=== PATIENT | male | born 1945 | race Caucasian/White ===

== ENCOUNTER 2018-06-11 18:22 | Inpatient (IN) | payer OTHER ==
[~2018-06-11] VITALS: Ht 180.3 cm; Wt 103.0 kg
--- NOTE | ~2018-06-11 | EEG ---
[address] [address] EEG STUDY REPORT Name: PATRICK VIZCAINO Room: [address] IN M.R.#: [id number] Admission: 06/11/18 Attend Phys: Michele Gore Discharge: Date of : 49 Report #: [id number] THIS REPORT FOR: //name// CC: Jasmine Henderson DATE OF SERVICE: 06/13/2018 This patient had an episode of syncope. EEG was done by placing the electrode by standard 10-20 system of electrode placement. Both referential and sequential montages were used for recording. Background activity in this patient's EEG is about 11 Hz and 30 microvolt. The patient became drowsy that is associated with bilateral slowing and vertex sharp waves. Photic stimulation was unremarkable. Throughout the record, no active epileptiform activity was noticed. IMPRESSION: This patient's EEG is within normal limit. Thank you very much for this referral. By: [id number] [id number] Jarrell MD /lexie
--- NOTE | ~2018-06-11 | CON ---
[address] [address] CONSULTATION Name: PATRICK VIZCAINO Room: [address] IN M.R.#: [id number] Admission: 06/11/18 Attend Phys: Michele Gore Discharge: Date of : 49 Report #: [id number] THIS REPORT FOR: //name// CC: Jasmine Henderson DATE OF SERVICE: 06/13/2018 HISTORY OF PRESENT ILLNESS: This is a 73-year-old male patient who was evaluated by me for an episode of syncope. The patient gives a history that he tried to stand up, but then he had a distinct finding of right side becoming spastic. He was conscious during that episode. It was found that he was hypotensive during that episode. There is no well-defined postictal period. REVIEW OF SYSTEMS: He indicates that he also had other episode where he become spastic on one side or other side. History is complicated because he does have a history of anxiety. He had a severe depression somewhere in 1990s, but anxiety has been pretty persistent throughout his life. Cardiology note was seen and looks like they are readjusting his medications because of his hypertension. They have also done the workup and some of the workup will be done as an outpatient. Review of systems is positive for prostate problem. He has a ganglion removal. He has depression and anxiety. He does have a history of hypertension, but looks like he has a history of hypotension now. Fourteen-point review of system was carried out and it was noncontributory except as described above. PAST MEDICAL HISTORY: Positive for similar episode where he does become somewhat spastic. FAMILY HISTORY: Negative for any early age stroke. SOCIAL HISTORY: He does not drink alcohol on a regular basis and does not use any street drugs. PHYSICAL EXAMINATION: Indicates he is alert. He is responsive. He can follow simple commands. His speech, concentration, fund of knowledge and memory is at his baseline. Cranial nerve examination 2-12 looks unremarkable. Strength, sensation, reflexes and tones are symmetrical. There is no cerebellar sign. I could not look at the fundus. He is reasonably well-developed individual who does not have any dysmorphic features of eyes, ears and face. His vision and hearing looks adequate. He has no thyroid mass. There is no carotid bruit. Cardiac examinations appear noncontributory. No respiratory difficulty or rhonchi. Blood pressure is 123/70, respiration 17, pulse is 78, temperature is 97.4. LABORATORY DATA: Indicate normal white count. Sodium is normal[place] [address] CONSULTATION Name: PATRICK VIZCAINO Room: [address] IN [facility]#: [id number] Admission: 06/11/18 Attend Phys: Michele Gore Discharge: Date of : 49 Report #: [id number] carotid Doppler and CT and that does not show any finding, which can explain the patient's symptoms. It does show some atrophy. IMPRESSION: This patient's symptoms were most likely secondary to hypoperfusion of the brain secondary to hypotension. He has a distinct focality to the symptoms, which is somewhat concerning. Because of that, a baseline stenosis on the left side, which was compensated in the baseline, but became decompensated with hypertension need to be excluded. So, I recommended the workup to further exclude that. RECOMMENDATIONS: 1. We will do the MRI of the brain. I discussed the procedure with him. I discussed the option of doing with contrast or doing without contrast. He wants to do it with and without contrast and he understands the potential complication of contrast. 2. We will do an EEG. 3. We will do an MRA. His BUN and creatinine is normal. So, the chances of any contrast reaction is low, but some contrast reaction including irreversible dermatological affect is always possible. I have discussed all of it with the patient and I will also talk to his daughter who is a nurse after the above workup is available. Thank you very much for this referral and if you have any question, please feel free to contact me. By: [id number] [id number] Jarrell MD /lexie
[~2018-06-11 18:22] MED LIST: ALLEGRA ALLERG180 MG PO; ASPIRIN81 M2 PO; CALCIUM 600 +1 EAC1 PO; CENTRUM SILVER1 EAC4 PO; CLONAZEPAM 0.50.5 M1 PO; DIOVAN 80 MG TA80 M1 PO; FISH OIL 1,0001 EAC8 PO; METOPROLOL SUCC25 M1 PO; MIRAPEX1 MG PO; MOBIC15 MG PO; NEXIUM 40 MG CA40 M1 PO; NIASPAN 500 MG500 M1 PO; PRAVASTATIN SOD40 MG PO; SERTRALINE HCL50 MG PO; SPIRONOLACTONE25 M1 PO; VESICARE 5 MG TA5 M1 PO; VITAMIN D-32000 UNIT PO
[2018-06-11] MEDS ORDERED: ACCUNEB SO1.25 MG/1 INH (18:41)
[2018-06-11] MEDS ORDERED: NORVASC5 M1 PO (18:42)
[2018-06-11] MEDS ORDERED: PULMICORT0.5 MG/22 INH (18:43)
[2018-06-11] MEDS ORDERED: LIPITOR 20 MG T20 M1 PO (18:43)
[2018-06-11] MEDS ORDERED: ELIDEL CREAM 1%30 G1 TOP (18:45)
[2018-06-11] MEDS ORDERED: COREG25 MG PO (18:45)
[2018-06-11] MEDS ORDERED: TRAMADOL 50 MG50 MG PO (18:46)
[2018-06-11] MEDS ORDERED: LEXAPRO20 MG PO (18:46)
[2018-06-11] MEDS ORDERED: COQ-10100 MG PO (18:47)
[2018-06-11] MEDS ORDERED: VITAMINC500 PO (18:47)
[2018-06-11] MEDS ORDERED: PHOSPHATIDYLSERI1 GM PO (18:48)
[2018-06-11 18:55] LABS: ABSOLUTE BASOPHILS 0.1 thou/uL (0.0-0.2); ABSOLUTE EOSINOPHILS 0.1 thou/uL (0.0-0.7); ABSOLUTE LYMPHOCYTES 1.5 thou/uL (0.8-5.3); ABSOLUTE MONOCYTES 0.7 thou/uL (0.0-1.2); ABSOLUTE NEUTROPHILS 5.5 thou/uL (1.6-8.1); BASOPHILS 0.7 %; EOSINOPHILS 1.7 %; HEMATOCRIT 36.3 % (42.0-52.0); HEMOGLOBIN 12.2 gm/dL (14.0-18.0); LYMPHOCYTES 18.7 %; MCH 30.7 pg (26.0-34.0); MCHC 33.5 g/dL (28.0-37.0); MCV 91.7 fL (80.0-100.0); MONOCYTES 8.4 %; MPV 10.2 fl. (7.2-11.1); NUCLEATED RBCS 0 /100WBC; PLATELET COUNT* 216 thou/uL (150-400); POLYS 70.5 %; RBC 3.96 mil/uL (4.50-6.00); RDW-CV 14.2 % (10.5-14.5); WBC 7.8 thou/uL (4.0-11.0)
[2018-06-11 19:02] LABS: ANION GAP 8 mmol/L (7-16); BUN 32 mg/dL (7-18); CALCIUM 8.8 mg/dL (8.5-10.1); CHLORIDE 102 mmol/L (98-107); CO2 28 mmol/L (21-32); CREATININE 1.4 mg/dL (0.6-1.3); GLUCOSE 126 mg/dL (70-99); POTASSIUM 4.2 mmol/L (3.5-5.1); SODIUM 138 mmol/L (136-145)
[2018-06-11 19:13] LABS: ALBUMIN 3.3 g/dL (3.4-5.0); ALKALINE PHOSPHATASE 63 U/L (46-116); NT-PRO BRAIN NAT PEPTIDE 55 pg/mL (<300); SGOT 18 U/L (15-37); SGPT 18 U/L (30-65); TOTAL BILIRUBIN 0.4 mg/dL (<0.1-1.0); TOTAL PROTEIN 6.7 g/dL (6.4-8.2); TROPONIN-I LEVEL <0.06 ng/mL (<0.06)
[2018-06-11 19:47] LABS: URINE BILIRUBIN NEGATIVE (Negative); URINE BLOOD NEGATIVE (Negative); URINE CLARITY CLEAR; URINE COLOR YELLOW; URINE GLUCOSE-RANDOM NEGATIVE (Negative); URINE KETONES NEGATIVE (Negative); URINE LEUKOCYTES-REFLEX NEGATIVE (Negative); URINE NITRITE-REFLEX NEGATIVE (Negative); URINE PROTEIN NEGATIVE (Negative); URINE UROBILINOGEN 0.2 E.U./dl (0.2-1.0)
[2018-06-11 21:45] VITALS: BP 129/65
[2018-06-11 22:00] VITALS: BP 131/55
--- NOTE | 2018-06-11 23:02 | NUR ---
PT ADMITTED TO ROOM 208 AT 2200 FOR NEAR SYNCOPAL EPISODE AT HOME. PT AMBULATE FROM [facility] IN [place] TO BED WITH STANDBY ASSISTANCE. PT DENIES LIGHT HEADEDNESS OR VERTIGO. PT'S BLOOD PRESSURE AND HEART RATE WITHIN NORMAL LIMITS UPON ARRIVAL. MONITOR SHOWS SINUS RHYTHYM. CALL LIGHT IN REACH, PT DEMONSTRATES PROPER USE. FALL PRECAUTIONS IN PLCE, BED ALARM ON.
[2018-06-12] VITALS (8 sets, daily range): BP systolic 102–122; BP diastolic 48–64
[2018-06-12 05:28] LABS: ANION GAP 10 mmol/L (7-16); BUN 28 mg/dL (7-18); CALCIUM 8.9 mg/dL (8.5-10.1); CHLORIDE 105 mmol/L (98-107); CO2 25 mmol/L (21-32); CREATININE 1.2 mg/dL (0.6-1.3); GLUCOSE 91 mg/dL (70-99); MAGNESIUM 1.8 mg/dL (1.8-2.4); POTASSIUM 4.1 mmol/L (3.5-5.1); SODIUM 140 mmol/L (136-145); TROPONIN-I LEVEL <0.06 ng/mL (<0.06)
--- NOTE | 2018-06-12 05:54 | NUR ---
BLOOD PRESSURE WITHIN NORMAL LIMITS SINCE ADMISSION. MONITOR SHOWS BIJEMINY FOR LONG PERIODS OF TIME. NO VERTIGO OR LIGHTHEADEDNESS DURING NIGHT. PT UP WITH STANBY ASSIST, NO SYNCOPE. WILL CONTINUE TO MONITOR .
--- NOTE | 2018-06-12 09:00 | NUR ---
REC'D REPORT FROM NOC RN, ASSUMED CARE OF PT APPROX 0730. A&O x4, FORGETFUL, BUT ABLE TO COMMUNICATE NEEDS TO STAFF. BRUSHER OPERATOR IN PLACE, MARY. O2 SATS 94% 2L/MIN NC. ASSESSMENT COMPLETE. CALL LIGHT WITHIN REACH. HOURLY ROUNDING TO ASSESS FOR PT NEEDS.
[2018-06-12 10:36] LABS: CHOLESTEROL 127 mg/dL (<200); HDL CHOLESTEROL 25 mg/dL (>40); LDL CHOLESTEROL 67 mg/dL (<100); SERUM ASSESSMENT Clear; TC:HDL 5.1 Ratio (Not establshd); TRIGLYCERIDE 175 mg/dL (<150); VLDL 35 mg/dL (<40)
--- NOTE | 2018-06-12 11:00 | NUR ---
PT'S DTR, ALLEN, TO ROOM VISITING PT. DTR REVIEWED EPISODE THAT HAPPENED AT HER HOME PRIOR TO PT BEING TRANSPORTED TO HOSPITAL. ALLEN STATES "DAD DIDN'T LOSE CONSCIOUSNESS. HIS RIGHT ARM AND LEG BECAME STIFF. HE GRUNTED HE SPOKE MY NAME." REVIEWED PLAN FOR PT WITH DTR ALLEN WHO VOICED UNDERSTANDING.
--- NOTE | 2018-06-12 11:10 | EKG ---
[place] [address] ELECTROCARDIOGRAM REPORT Name: PATRICK VIZCAINO Room: [address] ADM IN M.R.#: [id number] Admission: 06/11/18 Attend Phys: Michele Gore Discharge: Date of : 49 Report #: [id number] THIS REPORT FOR: //name// [facility] ED Test Date: 2018-06-11 Test Time: 18:28:17 Pat Name: PATRICK VIZCAINO Department: Room: [facility] Gender: Foot Piece Assembler: Jonathon MARK : 1945 Requested By: Mirella Barragan Order Number: [id number] MD: Matthew Vizcarra Measurements Intervals [place] Rate: 56 P: 40 CT: 328 QRS: 18 QRSD: 96 T: 68 QT: 406 QTc: 392 Interpretive Statements Sinus rhythm Ventricular trigeminy Prolonged CT interval Abnormal R-wave progression, early transition Compared to ECG 11/28/2012 09:01:00 Ventricular premature complex(es) now present Electronically Signed On 06-12-2018 11:09:46 PUBLIC HEALTH ANALYST by Matthew Vizcarra [email or web address] <ELECTRONICALLY SIGNED> By: Matthew Vizcarra MD, FAC 06/12/18 1109 [id number] 27 Matthew Vizcarra MD, FAC /EPI
--- NOTE | 2018-06-12 11:10 | EKG ---
[place] [address] ELECTROCARDIOGRAM REPORT Name: PATRICK VIZCAINO Room: [address] ADM IN M.R.#: [id number] Admission: 06/11/18 Attend Phys: Michele Gore Discharge: Date of : 49 Report #: [id number] THIS REPORT FOR: //name// [facility] ED Test Date: 2018-06-11 Test Time: 19:45:50 Pat Name: PATRICK VIZCAINO Department: Room: [facility] Gender: M Phone Screener: Bladimir CARIAS : 1945 Requested By: Tristin Medina Order Number: [id number] MD: Matthew Vizcarra Measurements Intervals [place] Rate: 70 P: 45 [place]: 331 QRS: 15 QRSD: 100 T: 62 QT: 406 QTc: 439 Interpretive Statements Sinus rhythm Ventricular trigeminy Prolonged [place] interval Low voltage, precordial leads Compared to ECG 11/28/2012 09:01:00 Ventricular premature complex(es) now present Low QRS voltage now present Electronically Signed On 06-12-2018 11:10:05 IRRIGATION TEACHER by Matthew Vizcarra [email or web address] <ELECTRONICALLY SIGNED> By: Matthew Vizcarra MD, FACC 06/12/18 1110 44 44 Matthew Vizcarra MD, FACC /EPI
--- NOTE | 2018-06-12 11:12 | EKG ---
[place] [address] ELECTROCARDIOGRAM REPORT Name: CARRILLOPATRICK Room: [address] ADM IN M.R.#: [id number] Admission: 06/11/18 Attend Phys: Michele Gore Discharge: Date of : 49 Report #: [id number] THIS REPORT FOR: //name// [facility] Test Date: 2018-06-12 Test Time: 08:09:24 Pat Name: PATRICK VIZCAINO Department: Room: [address] Gender: M Straight Edger: : 1945 Requested By: Jack Henderson Order Number: [id number] Reading MD: Matthew Vizcarra Measurements Intervals [place] Rate: 81 P: 68 CT: 313 QRS: 18 QRSD: 99 T: 56 QT: 375 QTc: 436 Interpretive Statements Sinus rhythm Ventricular bigeminy Prolonged CT interval Compared to ECG 11/28/2012 09:01:00 Ventricular premature complex(es) now present Electronically Signed On 06-12-2018 11:11:52 PAINT GRINDER by Matthew Vizcarra [email or web address] <ELECTRONICALLY SIGNED> By: Matthew Vizcarra MD, FACC 06/12/18 1111 [id number] Matthew Vizcarra MD, [facility] /EPI
--- NOTE | 2018-06-12 15:36 | NUR ---
Pt having a u/s in room, CM will f/u later
--- NOTE | 2018-06-12 17:35 | 2DMMODE ---
[place] [address] 2 D/M-MODE ECHOCARDIOGRAM Name: PATRICK VIZCAINO Room: [address] IN [facility]#: [id number] Admission: 06/11/18 Attend Phys: Jack Henderson Discharge: Date of : 49 Date of Service: 06/12/18 1734 Report #: [id number] THIS REPORT FOR: //name// APPROVED REPORT Study performed: 06/12/2018 15:01:59 EXAM: Comprehensive 2D, Doppler, and color-flow Echocardiogram Patient Location: In-Patient Room #: 208 Status: routine BSA: 2.23 HR: 78 bpm BP: 105/48 mmHg Rhythm: NSR Other Information Study Quality: Good Indications Arrhythmia Syncope 2D Dimensions IVSd: 9.34 (7-11mm) LVOT Diam: 22.04 (18-24mm) LVDd: 45.63 mm PWd: 9.14 (7-11mm) Ascending Ao: 37.16 (22-36mm) LVDs: 20.67 (25-40mm) Aortic Root: 39.58 mm Volumes Left Atrial Volume (Systole) LA ESV Index: 23.60 mL/m2 Aortic Valve AoV Peak Jama.: 1.24 m/s AO Peak Gr.: 6.16 mmHg LVOT Max P.43 mmHg AO Mean Gr.: 3.70 mmHg LVOT Mean P.17 mmHg LVOT Max V: 1.05 m/s AO V2 VTI: 25.12 cm LVOT Mean V: 0.68 m/s JARROD (VTI): 3.46 cm2 LVOT V1 VTI: 22.79 cm Mitral Valve E/A Ratio: 0.78 MV E Max Jama.: 0.98 m/[place] [address] 2 D/M-MODE ECHOCARDIOGRAM Name: PATRICK VIZCAINO Room: [address] IN ..#: [id number] Admission: 06/11/18 Attend Phys: Jack Henderson Discharge: Date of : 49 Date of Service: 06/12/18 1734 Report #: [id number] TDI E/Lateral E': 8.17 E/Medial E': 8.17 Medial E' Jama.: 0.12 m/s Lateral E' Jama.: 0.12 m/s Pulmonary Valve PV Peak Jama.: 0.91 m/s PV Peak Gr.: 3.32 mmHg Tricuspid Valve RAP Estimate: 5.00 mmHg TR Peak Gr.: 19.79 mmHg RVSP: 25.00 mmHg PA Pressure: 25.00 mmHg Left Ventricle The left ventricle is normal size. There is normal LV segmental wall motion. There is normal left ventricular wall thickness. Left ventricular systolic function is normal. The left ventricular ejection fraction is within the normal range. LVEF is 55-60%. Grade I - abnormal relaxation pattern. Right Ventricle The right ventricle is normal size. The right ventricular systolic function is normal. Atria The left atrium size is normal. The right atrium size is normal. Aortic Valve The aortic valve is normal in structure. No aortic regurgitation is present. There is no aortic valvular stenosis. Mitral Valve Mitral valve leaflets are thickened. There is no mitral valve regurgitation noted. No evidence of mitral valve stenosis. Tricuspid Valve The tricuspid valve is normal in structure. Trace tricuspid regurgitation. No pulmonary hypertension. Pulmonic Valve The pulmonary valve is normal in structure. There is no pulmonic valvular regurgitation[place] [address] 2 D/M-MODE ECHOCARDIOGRAM Name: PATRICK VIZCAINO Room: [address]#: [id number] Admission: 06/11/18 Attend Phys: Jack Henderson Discharge: Date of : 49 Date of Service: 06/12/18 1734 Report #: [id number] The aortic root is normal in size. IVC is normal in size and collapses >50% with inspiration. Pericardium There is no pericardial effusion. <Conclusion> LVEF is 55-60%. Grade I - abnormal relaxation pattern. There is normal LV segmental wall motion. There is no aortic valvular stenosis. No aortic regurgitation is present. No evidence of mitral valve stenosis. There is no mitral valve regurgitation noted. <ELECTRONICALLY SIGNED> By: Matthew Vizcarra MD, FACC 06/12/18 1734 1734 1734 Matthew Vizcarra MD, FACC /INF
[2018-06-13 04:22] VITALS: BP 120/43
[2018-06-13 05:14] LABS: CALCIUM 9.8 mg/dL (8.5-10.1); CREATININE 1.2 mg/dL (0.6-1.3); MAGNESIUM 1.9 mg/dL (1.8-2.4); POTASSIUM 4.2 mmol/L (3.5-5.1)
--- NOTE | 2018-06-13 06:00 | NUR ---
PT IS ABLE TO COMMUNICATE HIS NEEDS TO STAFF EFFECTIVELY. HE HAS DENIED THE NEED FOR PAIN MEDICATION UP TO THIS TIME. PT DENIES ANY RECURRENT DIZZINESS SO FAR THIS SHIFT; HE DID NOT FEEL DIZZY WHILE ORTHOSTATIC BPs WERE PERFORMED.
[2018-06-13 08:11] VITALS: BP 121/70
[2018-06-13 10:45] VITALS: BP 121/70
[2018-06-13 12:00] VITALS: BP 123/70
--- NOTE | 2018-06-13 15:31 | NUR ---
Pt out of room at MRI, possible dc tonight if negative. Following.
--- NOTE | 2018-06-13 16:59 | NUR ---
ASSUMED CARE OF PT AROUND 0730 THIS AM. REFER TO ASSESSMENT. PT HAD NEGATIVE NEUROLOGY WORK UP THIS SHIFT AND GIVEN OK TO DC HOME. PT GIVEN DC INSTRUCTIONS AND VERBALIZES UNDERSTANDING. NO OTHER CONCERNS AT THIS TIME. CLWR. WCTM.
== END 2018-06-13 17:40 | disposition home or self-care (01) | DRG 101 ==
LOC: M.ERS 18:22 → M.2W 20:29 → M.TBA-ER 20:29 → M.2W 21:51
PROVIDERS: Internal Medicine; Nurse Practitioner Family; ADMIT Internal Medicine
DX: R56.9 Unspecified convulsions (principal); R55 Syncope and collapse; N18.2 Chronic kidney disease, stage 2 (mild); I12.9 Hypertensive chronic kidney disease with stage 1 through stage 4 chronic kidney disease, or unspecified chronic kidney disease; I44.0 Atrioventricular block, first degree; F41.0 Panic disorder [episodic paroxysmal anxiety]; I49.3 Ventricular premature depolarization; F41.9 Anxiety disorder, unspecified; M81.0 Age-related osteoporosis without current pathological fracture; Z96.651 Presence of right artificial knee joint; I95.2 Hypotension due to drugs; F32.9 Major depressive disorder, single episode, unspecified; Z90.49 Acquired absence of other specified parts of digestive tract; Z79.82 Long term (current) use of aspirin; Z79.899 Other long term (current) drug therapy; Z82.49 Family history of ischemic heart disease and other diseases of the circulatory system; Z84.89 Family history of other specified conditions

== ENCOUNTER → 2020-01-18 | Outpatient (CLI) | payer OTHER ==
[~2020-01-18] MED LIST changes: +ACCUNEB SO1.25 MG/1 INH; +COQ-10100 MG PO; +COREG25 MG PO; +ELIDEL CREAM 1%30 G1 TOP; +LEXAPRO20 MG PO; +LIPITOR 20 MG T20 M1 PO; +NORVASC5 M1 PO; +PHOSPHATIDYLSERI1 GM PO; +PULMICORT0.5 MG/22 INH; +TRAMADOL 50 MG50 MG PO; +VITAMINC500 PO
== END ==
LOC: M.LAB 08:18
PROVIDERS: ATTEND Internal Medicine Gastroenterology
DX: Z01.812 Encounter for preprocedural laboratory examination (principal); R19.4 Change in bowel habit; Z11.59 Encounter for screening for other viral diseases; Z86.010 Personal history of colon polyps

== ENCOUNTER → 2020-01-24 | Outpatient (CLI) | payer OTHER | LOC: M.LAB 06:47 | PROVIDERS: ATTEND Anesthesiology | DX: E87.6 Hypokalemia (principal) ==